=== PATIENT | female | born 2000 | race African-American/Black ===

== ENCOUNTER 2024-08-19 00:16 | Emergency (ER) | payer MEDICAID ==
[~2024-08-19] VITALS: Ht 162.6 cm; Wt 86.5 kg
[2024-08-19 01:01] VITALS: O2SAT 98
[2024-08-19] MEDS ORDERED: P50 MT (01:13)
[2024-08-19 01:21] VITALS: BP 104/60; PULSE 75; RESP 20; TEMP 36.83628; O2SAT 100
== END 2024-08-19 01:24 | disposition home or self-care (01) ==
LOC: ER 00:16
DX: L29.9 Pruritus, unspecified (principal); Z88.0 Allergy status to penicillin
CPT/HCPCS: 99283